=== PATIENT | female | born 1960 | race Caucasian/White ===

== ENCOUNTER 2016-05-06 09:38 | Emergency (ER) | payer OTHER ==
[~2016-05-06] VITALS: Ht 177.8 cm; Wt 165.4 kg
[~2016-05-06 09:38] MED LIST: ALBU8.5H2 IH; ASCO500C6 PO; ASPI-973 PO; BECL8.7A6 INHALATION; BETA15OI3 TP; CHOL400T PO; CITA40TA13 PO; CLIN-77 PO; CLIN-78 PO; FRSM80T PO; GABA600T2 PO; INSLIS SUBQ; INSU100V7 SUBQ; KEN1O TOP; LISI-567 PO; LOVA20TA PO; MUPI22OI2 NOSTRIL; PHN100C PO; UBID100C25 PO; ZOV800 PO
[2016-05-06 09:52] VITALS: BP 130/68; PULSE 87; RESP 22; O2SAT 98
--- NOTE | 2016-05-06 09:56 | ED.REPORT ---
HPI-Rash / Abscess Date of Service May 06, 2016 ED Provider: Dr. Grover Patient is a 55 year old female with a hx of DM, arthritis, fibromyalgia and cellulitis to the left hand who reports to the ED complaining of pain and swelling in the left hand radiating into the forearm onset last night. Wedding ring had to be cut off by nurses due to swelling. Patient denies any trauma that could have caused swelling. Pt denies fevers, vomiting, and hx of blood clots. She is currently on lisinopril and antibiotics. Nursing Notes Stated Complaint: CELLULITIS Chief Complaint: Extremity Trauma Nursing Notes Reviewed: Yes Allergies: Coded Allergies: Penicillins (Verified Allergy, Severe, hives, itching, 05/06/16) PIPERACILLIN RECEIVED WITH NO REACTION ciprofloxacin (Verified Allergy, Severe, seizures, 05/06/16) LEVOFLOXACIN RECEIVED WITH NO REACTION Scheduled Acyclovir (Acyclovir) 800 Mg Tab 800 MG PO TID Ascorbic Acid (Vitamin C) 500 Mg Capsule.er 500 MG PO DAILY Aspirin (Aspirin) 81 Mg Tablet.dr 81 MG PO DAILY Beclomethasone Dipropionate (Qvar) 8.7 Gm Aer.w.adap 1 PUFF INHALATION BID Betamethasone Dipropionate (Betamethasone Dipropionate) 15 Gm Oint...g. 1 APPL TP BID to arms for skin irritation. Cholecalciferol (Vitamin D3) (Vitamin D3) 400 Unit Tablet 800 UNIT PO DAILY Citalopram (Citalopram) 40 Mg Tablet 40 MG PO QAM Clindamycin (Clindamycin) 150 Mg Capsule 450 MG PO QID Clindamycin (Clindamycin) 300 Mg Capsule 300 MG PO QID Furosemide (Furosemide) 80 Mg Tab 160 MG PO DAILY Gabapentin (Gabapentin) 600 Mg Tablet 1,200 MG PO TID Insulin Glargine (Lantus U100 Insulin Vial) 100 Unit/Ml Vial 50 UNIT SUBQ BID Insulin Human Lispro (HumaLOG U100 Insulin Vial) 100 Unit/Ml Unit 0 SUBQ AC Correctional Insulin: Check blood sugars before meals and at bedtime. Use correction factor only before meals. Blood Sugar Lispro Correction: <151, 0 units; 151-175, 1 unit; 176-200, 2 units; 201-225, 3 units; 226-250, 4 units; 251-275, 5 units; 276-300, 6 units; 301-325, 7 units; 326-350, 8 units; 351-375 , 9 units; 376-400, 10 units; >400, 12 units. Lisinopril (Lisinopril) 20 Mg Tablet 40 MG PO DAILY Lovastatin (Lovastatin) 20 Mg Tablet 20 MG PO QPM Mupirocin (Mupirocin Ointment) 22 Gm Oint...g. 1 APPLIC NOSTRIL DAILY Phenytoin Sodium ER (Dilantin) 100 Mg Capsule 200 MG PO BID Triamcinolone Acet (Triamcinolone Acetonide Ointment) 1 Applic/0.25 Gm Oint 1 APPLIC TOP BID Ubidecarenone (Co Q-10) 100 Mg Capsule 200 MG PO HS Scheduled PRN Albuterol HFA (Proair HFA) 8.5 Gm Hfa.aer.ad 2 PUFFS IH Q6 PRN PRN For Shortness of Breath General Time Seen by MD: 09:55 Chief Complaint Tender/swollen area (left hand ) Hx Obtained From: Patient Arrived By: Ambulance Onset Occurred: 5 - 8 hours ago Symptom Duration: Since onset Location: : Hand (left) Quality: Painful Severity: Current: Moderate Recent Healthcare: No recent doctor visit, No recent hospitalization Similar Sx Previous: No Past Medical History Past Medical History Notes: PCP: Dr. Muiñz Past Medical History Diabetes mellitus type 2, insulin-requiring with severe insulin resistance. a. Diabetic neuropathy with chronic wounds and left Charcot foot Morbid obesity. BMI 54 Syncope April 2013, attributed to vasovagal/gastroenteritis. ECHO and other workup reassuring. Obstructive sleep apnea, on CPAP. Seizure disorder. Depression. Chronic scalp ulcerations with history of MRSA in culture TBI Cellulitis (admit 11/15/15-11/24/15) arthritis fibromyalgia Reports: Diabetes mellitus, Hyperlipidemia, Hypertension Reports: Urinary tract infection Past Surgical History Reports: Cholecystectomy Smoking History Former Smoker Social History cataract extraction Multiple wound debridements Alcohol Use: "Social" Drug Use: Denies drug use Other Social History: Good social support, Local resident Ambulatory Status Independent Review of Systems Constitutional: Denies: Fever GI: Denies: Vomiting Musculoskeletal: Reports: Extremity pain (right hand and arm), Extremity swelling (right hand) Complete sys rev & neg: except as marked. Physical Exam Initial Vital Signs Vital Signs (First) Date Time Temp Pulse Resp B/P Pulse Ox O2 Delivery O2 Flow Rate FiO2 05/06/16 09:52 37.4 87 22 130/68 98 Room Air Initial VS: Reviewed Head / Eyes: Atraumatic, Normocephalic, PERRL ENT: Mucous membranes moist, Conjunctiva normal, No scleral icterus Neck: Supple, Non-tender, Full range of motion Respiratory: Breath sounds normal, Clear to auscultation, No respiratory distress Cardiovascular: Regular rate & rhythm, Heart sounds normal, Intact distal pulses Neurologic: Alert, Oriented, Nonfocal Psychiatric: Mood/affect normal, Behavior normal, Normal thought content General/Constitutional: Awake, Alert Appearance / Presentation: Positive: Hygiene poor, Obese, morbidly Lower Extremity / Pelvis / MS: Atraumatic wraps on bilateral lower extremities Interpretation & Diagnostics X-Ray Interpretation Xray Interpretation: HAND X-RAY IMPRESSION: Focal left fourth digit soft tissue swelling. No underlying bony abnormality. Dictated by: Misa Clayton M.D. on 05/06/2016 at 11:27 Approved by: Misa Clayton M.D. on 05/06/2016 at 11:28 X-Ray Ordered: Hand left Interpretation / Wet Read by: Interpret - Radiologist Interpretation: Normal exam Xray Interpretation: WRIST X-RAY IMPRESSION: No acute radiographic findings. Dictated by: Misa Clayton M.D. on 05/06/2016 at 11:29 Approved by: Misa Clayton M.D. on 05/06/2016 at 11:29 X-Ray Ordered: Wrist left Interpretation / Wet Read by: Interpret - Radiologist Interpretation: Normal exam Re-Eval/Medical Decision Med Decision/Clinical Course 55-year-old female history of fibromyalgia and osteoarthritis presenting complaining of left finger swelling earlier today. She noticed that her left ring finger was becoming more swollen and she called the medics. They noted swelling and cut her ring off. Afterward she felt much better. No sign symptoms infection. X-ray shows mild soft tissue swelling and no fractures. Possibly related to her arthritis. Resolution of pain and swelling after removing ring. Recommend she follow up with primary doctor several days if symptoms return or persist. Re-Evaluation/Progress : Time of Eval: 11:57 Patient Status: Condition improved, Pain improved Re-Evaluation/Progress Note: Pt rechecked. Informed pt of diagnosis of arthritis and finger swelling and plan for treatment. Pt understands and agrees with plan. F/U and RTER warnings given. All questions addressed. Counseled Regarding: Diagnosis, Lab results, Need for follow-up, When/why to return to ED Discharge & Departure Impression: Primary Impression: Arthritis Additional Impression: Finger swelling Disposition: Home Discharge Condition All VS Reviewed: Yes Condition: Stable Additional Instructions: Thank you for coming to the Emergency Room today. After reviewing your labs, you have no immediate health concerns, your diagnosis is arthritis and finger swelling. Take ibuprofen for pain management as needed. Follow up with your primary care doctor in the next week. If you experience any new or worsening symptoms, return to the Emergency Room. We hope you feel better soon! Referrals: Gurpreet Ortega DO (PCP) [place] Attestation Portion of this note were transcribed by Naveen Stokes. I, Dr. Grover, personally performed the history, physical exam, and medical decision-making: I reviewed and confirmed the accuracy for the information in the transcribed note. Signed by: marcella Ron, 05/06/16 1200 copies to: Gurpreet Ortega Ben M MD May 06, 2016 09:56 NAVEEN STOKES May 06, 2016 10:11
[2016-05-06] MEDS ORDERED: Ketorolac 30 mg/mL 2 mL Inj IM ONE (10:05)
--- NOTE | 2016-05-06 11:30 | DRSVH ---
PROCEDURE: X-RAY LEFT HAND, TWO VIEWS ([id number]) INDICATIONS: pain, swelling TECHNIQUE: 3 views of the hand(s) acquired. COMPARISON: None. FINDINGS: Bones: No fractures or dislocations. Carpal bones are normally aligned. No suspicious bony lesions . Soft tissues: There is focal soft tissue swelling of the proximal aspect of the left fourth digit. IMPRESSION: Focal left fourth digit soft tissue swelling. No underlying bony abnormality. Dictated by: Misa Clayton M.D. on 05/06/2016 at 11:27 Approved by: Misa Clayton M.D. on 05/06/2016 at 11:28
--- NOTE | 2016-05-06 11:31 | DRSVH ---
PROCEDURE: X-RAY LEFT WRIST, TWO VIEWS ([id number]) INDICATIONS: pain, swelling TECHNIQUE: 2 views of the wrist were acquired. COMPARISON: None. FINDINGS: Bones: No fractures or dislocations. No suspicious bony lesions. Soft tissues: No suspicious soft tissue calcifications. IMPRESSION: No acute radiographic findings. Dictated by: Misa Clayton M.D. on 05/06/2016 at 11:29 Approved by: Misa Clayton M.D. on 05/06/2016 at 11:29
[2016-05-06 12:29] VITALS: BP 130/68; PULSE 87; RESP 22; O2SAT 98
== END 2016-05-06 12:30 | disposition home or self-care (01) ==
LOC: EDBD 09:38 → SED 09:38
DX: M19.90 Unspecified osteoarthritis, unspecified site (principal); M79.89 Other specified soft tissue disorders; E11.40 Type 2 diabetes mellitus with diabetic neuropathy, unspecified; I10 Essential (primary) hypertension; Z90.49 Acquired absence of other specified parts of digestive tract; Z87.891 Personal history of nicotine dependence; Z79.82 Long term (current) use of aspirin; Z79.4 Long term (current) use of insulin; Z88.0 Allergy status to penicillin; Z88.1 Allergy status to other antibiotic agents
CPT/HCPCS: 73100; 73120; 82948; 96372; 99284; J1885